=== PATIENT | female | born 1995 | race Caucasian/White ===

== ENCOUNTER 2024-05-03 18:50 | Emergency (ER) | payer MEDICAID ==
[2024-05-03 19:08] VITALS: O2SAT 100
--- NOTE | 2024-05-03 19:23 | ED Physician Documentation ---
History of Present Illness - Stated complaint Stated Complaint: BILAT EAR PX - Chief complaint Chief Complaint: Heent - Additonal information Additional information: Patient is a 28-year-old female presenting to the emergency department with congestion and bilateral ear pain with left worse than the right. Patient symptoms have been going on for a few weeks. Patient denies any fevers, chills, nausea or vomiting. Patient notes symptoms Have progressively gotten worse she is now reporting sore throat symptoms. She has not seen anyone else for the symptoms. She has tried Tylenol for her head pain but has not taken anything else at home. She does not take any medications regularly. She denies any seasonal allergies associated with her symptoms. No recent sick contacts. PD PAST MEDICAL HISTORY - Past Medical History Past Medical History: No Cardiovascular: None Respiratory: None Neuro: None Endocrine/Autoimmune: None GI: None DIABETES EDUCATOR: None : None HEENT: None Psych: None Musculoskeletal: None Derm: None - Past Surgical History Past Surgical History: Yes HEENT: Tonsil/Adenoidectomy - Present Medications Home Medications: Ambulatory Orders Medication Instructions Recorded Confirmed Cefpodoxime Proxetil [Vantin] 200 mg PO BID #20 tablet 05/03/24 Fluticasone [Flonase] 1 sprays JAGDEEP DAILY #16 gm 05/03/24 - Allergies Allergies/Adverse Reactions: Allergies Allergy/AdvReac Type Severity Reaction Status Date / Time amoxicillin Allergy Hives Verified 05/03/24 19:00 bee venom protein (honey bee) Allergy Anaphylaxis Verified 05/03/24 19:00 - Social History Does the pt smoke?: No Smoking Status: Never smoker PD ED PE NORMAL - Vitals Vital signs reviewed: Yes - General General: Alert and oriented X 3 - HEENT HEENT: Atraumatic, Other (Moderate amount of cerumen removed from left ear soft not hard in order to visualize left TM. There does appear to be bulging and erythema to left TM with serous fluid behind left ear. Right ear shows erythema but no appreciable bulging. Palpable lymphadenopathy noted to anterior cervical region.) - Neck Neck: Supple, no meningeal sign - Cardiac Cardiac: RRR, No murmur, No gallop, No rub - Respiratory Respiratory: No respiratory distress, Clear bilaterally - Abdomen Abdomen: Normal bowel sounds - Neuro Neuro: Alert and oriented X 3 Eye Opening: Spontaneous Motor: Obeys Commands Verbal: Oriented GCS Score: 15 Results - Vitals Vitals: Vital Signs - 24 hr 05/03/24 18:54 Temperature 36.7 C Heart Rate 91 Respiratory 18 Rate Blood Pressure 131/62 H O2 Saturation 100 Oxygen O2 Source Room air PD Medical Decision Making - ED course ED course: Patient is a 28-year-old female presenting to the emergency department with ear pain sore throat congestion symptoms have been going on for weeks but progressively worsening. Patient denies any fevers. She has been taking Tylenol for symptoms with no relief. Vital stable on arrival patient is afebrile nontachycardic. Physical exam shows bulging to left tympanic membranes with erythema and serous fluid. There appears to be erythema to right TM as well. There appears to be palpable lymphadenopathy on examination. No meningeal signs on examination. Normal cardiac and lung sounds on auscultation. Oropharynx appears clear with moist mucous membranes appreciated. Discussed with patient symptoms most likely secondary to sinusitis and left acute otitis media. Will start patient on course of antibiotics as well as short course of fluticasone to help with sinus congestion. Patient agreeable with this plan. Patient instructed given history of allergies to penicillin we will try patient on cefpodoxime. Patient instructed there is small cross-reactivity given similar medications but lower risk given she has only had hives with history of amoxicillin allergy. Patient is agreeable with this plan. Departure - Departure Disposition: 01 Home, Self Care Clinical Impression: Left acute otitis media, Sinusitis Condition: Good Instructions: ED Otitis Media Acute Adult Prescriptions: Fluticasone [Flonase] 1 sprays JAGDEEP DAILY #16 gm Cefpodoxime Proxetil [Vantin] 200 mg PO BID #20 tablet Comments: You are seen here in the emergency department for Ear pain and congestion your workup here in the emergency department shows findings consistent with acute otitis media and sinus congestion I have sent steroids to help with your sinus congestion and oral antibiotics please take as prescribed develop any worsening fevers symptoms do not resolve or you develop worsening head pain or ear pain return to the emergency department. Follow-up with PCP in 2 weeks for reevaluation. Forms: PCP List
[2024-05-03] MEDS: CEFPODOXIME PROXETIL 100 MG TABLET PO STA (19:52)
[2024-05-03 19:56] VITALS: BP 128/60
[2024-05-03] MEDS ORDERED: CEFPODOXIME PROXETIL 100 MG TABLET PO SCH (20:00)
== END 2024-05-03 19:54 | disposition home or self-care (01) ==
LOC: ED 18:50
DX: H66.92 Otitis media, unspecified, left ear (principal); J32.9 Chronic sinusitis, unspecified; Z88.0 Allergy status to penicillin
CPT/HCPCS: 99283; A9270

== ENCOUNTER 2024-10-30 12:22 | Observation (INO) ==
--- NOTE | 2024-10-30 12:45 | ED Physician Documentation ---
PD HPI URI Stated complaint Stated Complaint: BACK PX, FEVER, SOA, 30+WKS PREG Chief complaint Chief Complaint: Fever History of Present Illness Timing - onset: How many days ago (2) Timing duration: Days (2) Timing details: Abrupt onset and Still present Associated symptoms: Fever, Chills, Nasal congestion and NVD Contributing factors: Sick contact (her 2 children with similar sympotms though milder, the past few days. ) Improves by: No Medication (tylenol at home but vomited it. ) Similar symptoms before: Has not had sx before Recently seen: Clinic ( visit recently without problems. She is 30 weeks with normal so far. No DM, HTN. 2 prior children with 1 C-Sec and one . Plan for again this time. ) Review of Systems Constitutional Reports: Fatigue, Fever, Chills and Weakness Cardiovascular Reports: lightheadedness and shortness of breath with exertion; Denies: Irregular heart rate (fast heart rate the past day) Respiratory Reports: Shortness of breath and Cough Gastrointestinal Reports: Abdominal pain (lower abd cramping radiating to lower lumbar back area. ), Nausea and Vomiting Genitourinary Reports: Vaginal discharge (mild, similar to prior pregnancies. ); Denies: Vaginal bleeding Endocrine Reports: Fatigue Meds/Allgy Home Medications Ambulatory Orders Medication Instructions Recorded Confirmed fluticasone propionate 50 1 sprays intranasal DAILY #16 grams 05/03/24 mcg/actuation nasal spray,suspension ondansetron 4 mg disintegrating 4 mg PO Q8H PRN nausea and 10/30/24 tablet vomiting #30 tabs oseltamivir 75 mg capsule 75 mg PO BID 5 days #9 caps 10/30/24 potassium chloride 20 mEq 20 meq PO DAILY 2 days #2 tabs 10/30/24 tablet,extended release(part/cryst) (Klor-Con M) Allergies Allergies Allergy/AdvReac Type Severity Reaction Status Date / Time amoxicillin Allergy Hives Verified 10/30/24 12:38 bee venom protein (honey bee) Allergy Anaphylaxis Verified 10/30/24 12:38 [facility] Surgical History Surgical History (Updated 10/30/24 @ 13:16 by Morena Sher, RN, BSN) Hx of section Social History Social History Smoking Status: Never smoker Do you vape?: No Relationship: Do you feel safe in your home environment?: Yes Suffered physical, verbal, emotional, or financial abuse?: No Exam Exam Tachycardic with adequate blood pressure. Constitutional normal general appearance, distress noted (moderate) (nauseated, with lower back pain, dry lips, seems pale. ) and average body habitus HENMT oral mucous membranes abnormal (dry) and oropharynx normal Lymph no lymphadenopathy noted Respiratory breath sounds equal bilaterally, normal respiratory effort and wheezing noted (expiratory wheezes) Cardiovascular heart rate abnormal (tachycardic) and no murmur Gastrointestinal abdomen soft to palpation gravid to midway from umbilicus to xyphoid c/w dates. doppler FHT 170s. WIll order NST/external monitoring. Genitourinary no CVA tenderness Psychiatry mental status grossly normal, oriented x3, thought process normal and affect normal Skin skin color abnormal (pale) Results Vitals Vitals: Vital Signs - 24 hr 10/30/24 12:36 10/30/24 13:08 10/30/24 13:38 Temperature 37.9 C Temperature Source Temporal Artery Scan Pulse Rate 135 H 130 H 114 H Respiratory Rate 18 17 16 Blood Pressure 113/70 122/54 L 101/51 L O2 Saturation 99 97 97 O2 Source Room air Room air Room air Pain Intensity 10 Oxygen O2 Source Room air Labs Labs: Laboratory Tests 10/30/24 13:17 WBC 7.2 RBC 4.66 Hgb 12.5 Hct 37.2 MCV 79.8 L MCH 26.8 L MCHC 33.6 RDW 13.4 Plt Count 190 MPV 10.4 Neut # (Auto) 6.3 Lymph # (Auto) 0.4 L [place] # (Auto) 0.5 Eos # (Auto) 0.0 Baso # (Auto) 0.0 Absolute Nucleated RBC 0.00 Nucleated RBC % 0.0 Sodium 131 L Potassium 3.2 L Chloride 104 Carbon Dioxide 18 L Anion Gap 9.0 BUN 6 Creatinine 0.6 Estimated GFR (MDRD) 119 Glucose 87 Calcium 8.2 L Magnesium 1.7 Total Bilirubin 0.4 AST 42 ALT 45 Alkaline Phosphatase 83 Total Protein 6.5 Albumin 3.5 Globulin 3.0 Albumin/Globulin Ratio 1.2 Lipase < 10 L Nasal Adenovirus (PCR) NOT DETECTED Nasal B. parapertussis DNA (PCR) NOT DETECTED Nasal Coronavir 229E PCR NOT DETECTED Nasal Coronavir HKU1 PCR NOT DETECTED Nasal Coronavir NL63 PCR NOT DETECTED Nasal Coronavir OC43 PCR NOT DETECTED Nasal Enterovir/Rhinovir PCR NOT DETECTED Nasal Influ A H1 2009 PCR DETECTED A Nasal Influenza B PCR NOT DETECTED Nasal Parainfluen 1 PCR NOT DETECTED Nasal Parainfluen 2 PCR NOT DETECTED Nasal Parainfluen 3 PCR NOT DETECTED Nasal Parainfluen 4 PCR NOT DETECTED Nasal RSV (PCR) NOT DETECTED Nasal B.pertussis DNA PCR NOT DETECTED Nasal C.pneumoniae (PCR) NOT DETECTED Ole Human Metapneumo PCR NOT DETECTED Nasal M.pneumoniae (PCR) NOT DETECTED Nasal SARS-CoV-2 (PCR) NOT DETECTED PD Medical Decision Making ED course Complexity details: d/w patient (seems flu like nad her 2 children with similar symptoms, also in ED. Resp panel test pending. She is tachycardic and with vomiting from illness. Given IV fluids, Zofran and TYlenol IV (No Toradol due to over 20 weeks EGA). ) and d/w curriculum consultant ([employer] solution sales senior executive - who felt pt would due better with placing in OBS in L&D for further meds/fluids. ) Discharge Plan Discharge Patient Disposition: ED Place in Observation Condition: Stable Clinical Impression: Acute dehydration, Tachycardia, Influenza A, Hypokalemia due to excessive gastrointestinal loss of potassium Qualifiers: Weeks of gestation: 30 weeks Qualified Code(s): Z3A.30 - 30 weeks gestation of Interventions: ED Admission Assessment Last Done: 10/30/24 14:36
[2024-10-30 13:25] LABS: BASOPHILS % (AUTO) 0.3 %; EOSINOPHILS % (AUTO) 0.1 %; HCT - HEMATOCRIT 37.2 % (37.0-47.0); HGB - HEMOGLOBIN 12.5 g/dL (12.0-16.0); LYMPHOCYTES # (AUTO) 0.4 10^3/uL (1.5-3.5); LYMPHOCYTES % (AUTO) 5.1 %; MEAN CORPUSCULAR HEMOGLOBIN 26.8 pg (27.0-31.0); MEAN CORPUSCULAR HGB CONC 33.6 g/dL (32.0-36.0); MEAN CORPUSCULAR VOLUME 79.8 fL (81.0-99.0); MEAN PLATELET VOLUME 10.4 fL (7.9-10.8); MONOCYTES # (AUTO) 0.5 10^3/uL (0.0-1.0); MONOCYTES % (AUTO) 6.2 %; NEUTROPHILS # (AUTO) 6.3 10^3/uL (1.5-6.6); NEUTROPHILS % (AUTO) 87.2 %; PLT - PLATELET COUNT 190 10^3/uL (130-450); RED BLOOD COUNT 4.66 10^6/uL (4.20-5.40); RED CELL DISTRIBUTION WIDTH 13.4 % (12.0-15.0); WHITE BLOOD COUNT 7.2 x10^3/uL (4.8-10.8)
[2024-10-30 13:40] LABS: ALBUMIN 3.5 g/dL (3.2-5.5); ALBUMIN/GLOBULIN RATIO 1.2 (1.0-2.2); ALKALINE PHOSPHATASE 83 IU/L (42-121); ALT ALANINE AMINOTRANSFERASE 45 IU/L (10-60); AST ASPARTATE AMINOTRANSFERASE 42 IU/L (10-42); BILIRUBIN,TOTAL 0.4 mg/dL (0.2-1.0); BUN - BLOOD UREA NITROGEN 6 mg/dL (6-20); CALCIUM 8.2 mg/dL (8.5-10.3); CARBON DIOXIDE - CO2 18 mmol/L (21-32); CHLORIDE 104 mmol/L (101-111); CREATININE 0.6 mg/dL (0.6-1.3); GFR - MDRD 119 (>89); GLUCOSE 87 mg/dL (74-104); MAGNESIUM 1.7 mg/dL (1.7-2.3); POTASSIUM 3.2 mmol/L (3.5-4.5); SODIUM 131 mmol/L (135-145); TOTAL PROTEIN 6.5 g/dL (6.4-8.9)
[2024-10-30] MEDS: ONDANSETRON 4 MG/2 ML VIAL IVP STA (13:41)
[2024-10-30] MEDS: FAMOTIDINE 20 MG/2 ML VIAL IVP STA (13:41)
[2024-10-30] MEDS: SODIUM CHLORIDE 0.9% 2,000 ML IV STA (13:42)
[2024-10-30] MEDS: ACETAMINOPHEN 1,000 MG/100 ML 1,000 MG/100 ML BAG IV ONE (13:42)
[2024-10-30 13:43] LABS: LIPASE < 10 U/L (11-82)
[2024-10-30 14:23] VITALS: O2SAT 95
[2024-10-30 14:41] LABS: B. PARAPERTUSSIS- RESP PCR PAN NOT DETECTED; B. PERTUSSIS- RESP PCR PANEL NOT DETECTED; C. PNEUMONIAE- RESP PCR PANEL NOT DETECTED; CORONAVIRUS 229E-RESP PCR NOT DETECTED; CORONAVIRUS HKU1-RESP PCR NOT DETECTED; CORONAVIRUS NL63-RESP PCR NOT DETECTED; CORONAVIRUS OC43-RESP PCR NOT DETECTED; HUMAN METAPNEUMOVIRUS NOT DETECTED; INFLUENZA A H1 2009- RESP PCR DETECTED; INFLUENZA B - RESP PCR PANEL NOT DETECTED; M. PNEUMONIAE- RESP PCR PANEL NOT DETECTED; PARAINFLUENZA VIRUS 1 NOT DETECTED; PARAINFLUENZA VIRUS 2 NOT DETECTED; PARAINFLUENZA VIRUS 4 NOT DETECTED; RHINOVIRUS/ENTEROVIRUS NOT DETECTED; RSV- RESP PCR PANEL NOT DETECTED; SARS-CoV-2 -RESP PCR PANEL NOT DETECTED
[2024-10-30] MEDS: OSELTAMIVIR 75 MG CAPSULE PO SCH (15:09)
[2024-10-30] MEDS: POTASSIUM CHLORIDE 20 MEQ TABLET PO ONE (15:09)
--- NOTE | 2024-10-30 15:14 | PROVIDER PROGRESS NOTE ---
HPI Chief Complaint: Other (Acute viral illness and decreased movements) Current : CC: Viral illness, decreased movements HPI: Patient is a 29 yo at 30+2 wks by ROSA 01/06/2025, who presented to [facility] ER today with viral illness symptoms. She has had fever, chills, body aches, cough, congestion, nausea, and vomiting since . Her max temp at home was 103.1 F on Friday. She hasn't been able to keep down foods/fluids since yesterday. Today, she noted decreased movements and became worried. She has been taking Tylenol every 6 hours for the last couple days but no other meds. She has + sick contacts (daughter). course/hx: - G1 was , and G2 was successful . She is seen/followed at and plans to [facility] with this . She has a high BMI (43 at time of visit today). She denies other complications, such as GDM or HTN. She does have a hx of HTN with her second . PMH: Denies PSH: , T&A, L knee scope. Meds: PNV. All: Amoxicillin ROS as noted above. Also, low back and hip pain. Denies contractions, vaginal bleeding, or leakage of fluid. Denies dysuria or urinary frequency. Has had decreased urine output due to poor PO intake. Vital Signs Temperature 37.4 C 10/30/24 14:23 Pulse Rate 116 H 10/30/24 14:23 Respiratory Rate 17 10/30/24 14:23 Blood Pressure 101/51 L 10/30/24 14:23 O2 Saturation 95 10/30/24 14:23 Exam Exam: General: Mildly ill-appearing but no acute distress Lungs: Clear bilaterally without wheezes or crackles Heart: Mild tachycardia with reg rhythm; no murmurs Abd: Soft, gravid, nontender Ext: Warm and well-perfused Pertinent lab results: WBC 7.2 Hgb 12.5 HCT 37.2 PLT 190 K 3.1 AST 42 ALT 45 Influenza A positive UA 100 protein, SG 1.015, > 80 ketones; otherwise normal/neg Procedures OB Procedure Performed: NST Diagnosis/Indication for NST: Decreased movement NST Procedure: FHT: Baseline 130s, mod variability, accels present, no decels [place]: No ctx noted Service Date of procedure: 10/30/24 Procedure Details: Limited OB US: - Transverse lie, back down and head at maternal left - AFV 15.2 cm with largest SDP 7.5 cm - BPP 8/8 (10/10 including reactive NST/cat 1 FHT) Findings: at 30+2 wks with current Influenza A, causing fever, cough, nausea, vomiting, and mild dehydration. FHT initially 170s in ER. status later reassuring (after IV hydration) with cat 1 FHT during prolonged monitoring and US demonstrating adequate AFV and overall BPP 10/10. Patient also subjectively felt movements improved after hydration. Plan Plan: 1. O98.513 Other viral illness affecting , third trimester - Patient transferred from ER to L&D/FBP for prolonged FHT monitoring and IV hydration (admitted to Observation) - IV Zofran, IV Pepcid, and IV tylenol 1000 mg given in ER - After result positive for Flu A, patient given Tamiflu 75 mg and Mucinex prn - New prescription placed for Tamiflu 75 mg bid x 5 days - Patient will purchase OTC Mucinex - Cont Tylenol prn fever and muscle aches (max dose 4 gm/24 hrs) - Discharged home after 2.5 L IV hydration and feeling better - F/u next schedule OB visit or sooner prn. Reviewed precautions to return if worsening respiratory sx, persistent fever, or OB concerns. 2. J09.X Influenza A 3. O36.8130 Decreased movement, third trimester 4. O99.283 Metabolic disorder affective , third trimester 5. E87.6 Hypokalemia - K-Dur 20 mEq given while in Observation - Prescribed oral KCL 20 mEq daily x 2 days 6. R11 Nausea and Vomiting - Prescribed Zofran ODT 4 mg 7. E86.0 Mild dehydration - Hydrated with 2 L LR while in triage - Encouraged continued PO hydration at home with both water and Pedialyte 8. O32.2 Transverse lie, third trimester
[2024-10-30] MEDS: guaiFENesin 600 MG TABLET PO SCH (15:25)
[2024-10-30] MEDS: LACTATED RINGERS 1,000 ML IV SCH (16:02)
[2024-10-30] MEDS: BENZOCAINE/MENTHOL LOZENGE MM PRN (16:02)
[2024-10-30 16:26] LABS: BILIRUBIN,URINE NEGATIVE (NEGATIVE); GLUCOSE, URINE (UA) NEGATIVE (NEGATIVE); KETONES,URINE (UA) >=80 mg/dL (NEGATIVE); LEUKOCYTE ESTERASE, URINE NEGATIVE (NEGATIVE); NITRITE,URINE NEGATIVE (NEGATIVE); OCCULT BLOOD,URINE NEGATIVE (NEGATIVE); PROTEIN,URINE 100 mg/dL (NEGATIVE); UROBILINOGEN,URINE 0.2 (NORMAL) E.U./dL (NORMAL)
[2024-10-30 16:42] LABS: BACTERIA,URINE Few /HPF (None Seen); CLARITY,URINE CLEAR (CLEAR); RBC,URINE None Seen /HPF (0-5); SQUAMOUS EPITHELIAL CELL,UR MANY Squamous (<= Few); WBC,URINE 0-3 /HPF (0-5)
[2024-10-30 18:04] VITALS: BP 110/59
[2024-10-30 18:05] VITALS: TEMP 98.7
== END 2024-10-30 17:46 | disposition home or self-care (01) ==
LOC: FBP 12:22 → ED 12:22 → FBP 14:37
PROVIDERS: ADMIT Obstetrics & Gynecology; ATTEND Obstetrics & Gynecology